=== PATIENT | female | born 1965 | race Caucasian/White ===

== ENCOUNTER 2016-04-22 01:56 | Emergency (ER) | payer OTHER ==
[~2016-04-22] VITALS: Ht 165.1 cm; Wt 73.5 kg
[2016-04-22 02:01] VITALS: BP 134/79
--- NOTE | 2016-04-22 02:07 | NUR ---
PT TAKEN TO BED 2
[2016-04-22] MEDS ORDERED: ASPIRIN 81 MG TAB.CHEW PO ONE (02:10)
[2016-04-22] MEDS ORDERED: NACL 0.9% 1,000 ML IV ONE (02:10)
--- NOTE | 2016-04-22 02:10 | NUR ---
50/F BIB SELF W/C/O CHEST PAIN. DENIES ANY N/V/D. NO MED HX ; SKIN IS PINK/WARM/DRY; AAOX4 WITH EVEN AND STEADY GAIT; LUNGS CLEAR BL; HR EVEN AND REGULAR; PT DENIES ANY FEVER, SOB, OR COUGH AT THIS TIME; PATIENT STATES PAIN OF 4/10 AT THIS TIME; VSS; PATIENT POSITIONED FOR COMFORT; HOB ELEVATED; BEDRAILS UP X2; BED DOWN. ER MD MADE AWARE OF PT STATUS.
--- NOTE | 2016-04-22 02:31 | NUR ---
Dr. Jama evaluating patient at bedside.
[2016-04-22] MEDS ORDERED: KETOROLAC 30 MG/ML VIAL IVP ONE (02:40)
--- NOTE | 2016-04-22 02:49 | NUR ---
AFTER 3 ATTEMPTS AT INSERTING AN IV, PT DID NOT WANT TO BE POKED ANOTHER TIME, ER MD DR DEVRIES MADE AWARE.
[2016-04-22] MEDS ORDERED: IBUPROFEN 800 MG TAB PO ONE (02:50)
--- NOTE | 2016-04-22 03:37 | NUR ---
X-Ray at bedside.
[2016-04-22 03:53] VITALS: BP 134/79
--- NOTE | 2016-04-22 03:53 | NUR ---
PATIENT ELOPED FROM FACILITY. DISCHARGE INSTRUCTIONS NOT GIVEN TO PATIENT. DR. DEVRIES NOTIFIED.
== END 2016-04-22 03:53 | disposition left against medical advice (07) ==
LOC: MED 01:56
DX: R07.89 Other chest pain (principal); R03.0 Elevated blood-pressure reading, without diagnosis of hypertension; R06.02 Shortness of breath; R05 Cough; F17.210 Nicotine dependence, cigarettes, uncomplicated
CPT/HCPCS: 36415; 71010; 80053; 84484; 85025; 85610; 85730; 93005; 99285; J7030; Q0092

== ENCOUNTER 2016-09-26 12:32 | Emergency (ER) | payer MEDICAID, OTHER ==
[~2016-09-26] VITALS: Ht 167.6 cm; Wt 68.0 kg
[2016-09-26 13:12] VITALS: BP 128/77
--- NOTE | 2016-09-26 13:22 | NUR ---
Ambulated to bed 5.
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
--- NOTE | 2016-09-26 13:50 | NUR ---
ER MD DR KEITH EVALUATING PT AT BEDSIDE.
--- NOTE | 2016-09-26 13:55 | NUR ---
PROVIDED URINE CUP FOR URINE COLLECTION.
--- NOTE | 2016-09-26 13:55 | NUR ---
Timoteo christopher in [facility] - 09/26/16 at 1454 by [facility] PROVIED URINE CUP FOR URINE COLLECTION.
--- NOTE | 2016-09-26 14:00 | NUR ---
Patient appears to be resting comfortably in bed. Vital Signs within normal limits. Respirations even and unlabored.WILL CONTINUE TO MONITOR.
[2016-09-26 14:28] LABS: HEMATOCRIT 46.1 % (36-48); HEMOGLOBIN 14.9 g/dL (12.0-16.0); MEAN CORPUSCULAR HEMOGLOBIN 28 pg (27-31); MEAN CORPUSCULAR HGB CONC 32 g/dL (33-37); MEAN CORPUSCULAR VOLUME 88 fL (80-94); PLATELET COUNT (AUTO) 185 K/uL (140-450); RED BLOOD CELL COUNT(AUTO) 5.27 MIL/uL (4.20-5.40); RED CELL DISTRIBUTION WIDTH 13.1 % (11.6-13.7); WHITE BLOOD COUNT (AUTO) 3.1 K/uL (4.8-10.8)
[2016-09-26 14:36] LABS: ALBUMIN 3.3 g/dL (3.4-5.0); CALCIUM 8.8 mg/dL (8.5-10.1); CARBON DIOXIDE 27.9 mmol/L (21-32); CREATININE 0.9 mg/dL (0.6-1.3); POTASSIUM 3.9 mmol/L (3.5-5.1); TOTAL BILIRUBIN 0.3 mg/dL (0.0-1.0); TOTAL PROTEIN, SERUM 7.4 g/dL (6.4-8.2)
[2016-09-26 14:47] LABS: BAND % (MANUAL) 0 % (0-8); EOSINOPHILS % (MANUAL) 4 % (0-4); LYMPHOCYTES % (MANUAL) 43 % (20-46); METAMYELOCYTES % 2 % (0-0); MONOCYTES % (MANUAL) 6 % (5-12); NEUTROPHILS % (MANUAL) 44 (43-65)
[2016-09-26 14:48] LABS: MYELOCYTES % 1 % (0-0); PLATELET ESTIMATE ADEQUATE
--- NOTE | 2016-09-26 15:00 | NUR ---
PT URENATED; URINE DIP DONE, SENT SPECIMEN TO LAB.
[2016-09-26 15:18] LABS: APPEARANCE,URINE SL CLOUDY (CLEAR); BILIRUBIN,URINE NEGATIVE (NEGATIVE); BLOOD, URINE NEGATIVE (NEGATIVE); COLOR,URINE YELLOW (YELLOW); LEUKOCYTE ESTERASE ,URINE TRACE (NEGATIVE); NITRITE, URINE POSITIVE (NEGATIVE); PROTEIN,URINE TRACE (NEGATIVE); UGLUCOSE NEGATIVE (NEGATIVE); UROBILINOGEN,URINE 0.2 EU/dL (0.2 - 1)
[2016-09-26 15:27] LABS: BACTERIA,URINE 4+ /HPF (None Seen); MUCUS,URINE 1+ /LPF (None Seen); RBC,URINE 0-3 /HPF (0-5)
--- NOTE | 2016-09-26 15:47 | NUR ---
Patient appears to be SLEEPING comfortably in bed. Vital Signs within normal limits. Respirations even and unlabored.WILL CONTINUE TO MONITOR.
--- NOTE | 2016-09-26 15:48 | NUR ---
ER MD DR KEITH REEVALUATING PT AT BEDSIDE.
[2016-09-26 15:57] VITALS: BP 126/78
--- NOTE | 2016-09-26 15:58 | NUR ---
Patient discharged with v/s stable. Written and verbal after care instructions given and explained. Patient alert, oriented and verbalized understanding of instructions. Ambulatory with steady gait. All questions addressed prior to discharge. ID band removed. Patient advised to follow up with PMD. Rx of BENADRYL ALLERGY & NITROFURANTOIN given. Patient educated on indication of medication including possible reaction and side effects. Opportunity to ask questions provided and answered.
== END 2016-09-26 15:58 | disposition home or self-care (01) ==
LOC: MED 12:32
DX: T78.40XA Allergy, unspecified, initial encounter (principal); R21 Rash and other nonspecific skin eruption; N39.0 Urinary tract infection, site not specified; Z90.89 Acquired absence of other organs; X58.XXXA Exposure to other specified factors, initial encounter
CPT/HCPCS: 36415; 80053; 81001; 81025; 85025; 87086; 99284

== ENCOUNTER 2017-02-06 10:13 | Emergency (ER) | payer MEDICAID ==
[~2017-02-06] VITALS: Ht 162.6 cm; Wt 69.9 kg
[2017-02-06 10:43] VITALS: BP 128/78
--- NOTE | 2017-02-06 10:50 | NUR ---
Patient to bed 01.
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
--- NOTE | 2017-02-06 11:54 | NUR ---
Dr. Herrera evaluating patient at bedside.
--- NOTE | 2017-02-06 12:12 | NUR ---
pt filling out orange survey.
--- NOTE | 2017-02-06 12:20 | NUR ---
Patient discharged with v/s stable. Written and verbal after care instructions given and explained. Patient alert, oriented and verbalized understanding of instructions. Ambulatory with steady gait. All questions addressed prior to discharge. ID band removed. Patient advised to follow up with PMD. Rx of motrin 600mg/tab given. Patient educated on indication of medication including possible reaction and side effects. Opportunity to ask questions provided and answered.
[2017-02-06 12:22] VITALS: BP 128/74
== END 2017-02-06 12:20 | disposition home or self-care (01) ==
LOC: MED 10:13
DX: R53.83 Other fatigue (principal); R42 Dizziness and giddiness; Z90.49 Acquired absence of other specified parts of digestive tract; F17.210 Nicotine dependence, cigarettes, uncomplicated
CPT/HCPCS: 81002; 81025; 82948; 99282

== ENCOUNTER 2017-03-20 20:02 | Emergency (ER) | payer MEDICAID ==
[~2017-03-20] VITALS: Ht 167.6 cm; Wt 68.0 kg
[2017-03-20 20:07] VITALS: BP 123/69
--- NOTE | 2017-03-20 20:11 | NUR ---
TO LOBBY, JUAN SWANSON,A/W BED, CECI NOTED
--- NOTE | 2017-03-20 20:49 | NUR ---
PATIENT AMBULATED TO BED 3
[2017-03-20 22:01] VITALS: BP 120/72
--- NOTE | 2017-03-20 22:01 | NUR ---
Patient discharged with v/s stable. Written and verbal after care instructions given and explained. Patient alert, oriented and verbalized understanding of instructions. Ambulatory with steady gait. All questions addressed prior to discharge. ID band removed. Patient advised to follow up with PMD. Rx of ROBITUSSIN AND MOTRIN given. Patient educated on indication of medication including possible reaction and side effects. Opportunity to ask questions provided and answered.
== END 2017-03-20 22:01 | disposition home or self-care (01) ==
LOC: MED 20:02
DX: J11.1 Influenza due to unidentified influenza virus with other respiratory manifestations (principal); R07.81 Pleurodynia; R05 Cough; F17.210 Nicotine dependence, cigarettes, uncomplicated
CPT/HCPCS: 71045; 93005; 99284

== ENCOUNTER 2017-10-20 12:41 | Emergency (ER) | payer MEDICAID ==
[~2017-10-20] VITALS: Ht 167.6 cm; Wt 71.3 kg
[2017-10-20 12:45] VITALS: BP 107/70
--- NOTE | 2017-10-20 12:47 | NUR ---
PT AMBULATED TO ED BED 7, REPORT TO TARYN CARROLL
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
--- NOTE | 2017-10-20 13:22 | NUR ---
DR DEVRIES EVALUATING AT BEDSIDE
--- NOTE | 2017-10-20 13:23 | NUR ---
XRAY AT BEDSIDE
--- NOTE | 2017-10-20 13:33 | NUR ---
[place] [employer] AT BEDSIDE
[2017-10-20] MEDS ORDERED: KETOROLAC 60 MG/2 ML VIAL IM ONE (13:35)
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
--- NOTE | 2017-10-20 13:58 | NUR ---
S/P SPLINT PLACEMENT TO R WRIST CAP REFILL BRISK, SKIN WNL, GOOD SENSATION
[2017-10-20 14:02] VITALS: BP 110/72
--- NOTE | 2017-10-20 14:02 | NUR ---
Patient discharged with v/s stable. Written and verbal after care instructions given and explained. Patient alert, oriented and verbalized understanding of instructions. Ambulatory with steady gait. All questions addressed prior to discharge. ID band removed. Patient advised to follow up with PMD. Rx of MOTRIN, TRAMADOL given. Patient educated on indication of medication including possible reaction and side effects. Opportunity to ask questions provided and answered.
== END 2017-10-20 14:02 | disposition home or self-care (01) ==
LOC: MED 12:41
DX: S40.022A Contusion of left upper arm, initial encounter (principal); S05.12XA Contusion of eyeball and orbital tissues, left eye, initial encounter; M25.531 Pain in right wrist; X58.XXXA Exposure to other specified factors, initial encounter; Y93.89 Activity, other specified; Y92.89 Other specified places as the place of occurrence of the external cause; Y99.8 Other external cause status
CPT/HCPCS: 29125; 73110; 96372; 99284; J1885; Q0092

== ENCOUNTER 2018-02-19 08:02 | Emergency (ER) | payer MEDICAID ==
[~2018-02-19] VITALS: Ht 167.6 cm; Wt 73.0 kg
[2018-02-19 08:08] VITALS: BP 102/66
[2018-02-19 09:24] VITALS: BP 101/70
== END 2018-02-19 09:20 | disposition home or self-care (01) ==
LOC: MED 08:02
DX: M17.12 Unilateral primary osteoarthritis, left knee (principal); F17.210 Nicotine dependence, cigarettes, uncomplicated; Z71.6 Tobacco abuse counseling; Z90.89 Acquired absence of other organs
CPT/HCPCS: 73562; 99283; Q0092

== ENCOUNTER 2018-04-04 09:16 | Emergency (ER) | payer MEDICAID ==
[~2018-04-04] VITALS: Ht 165.1 cm; Wt 70.0 kg
[2018-04-04 09:20] VITALS: BP 136/64
--- NOTE | 2018-04-04 09:25 | NUR ---
PATIENT AMBULATED TO BED 3.
--- NOTE | 2018-04-04 09:36 | NUR ---
52 YO F BIB SELF W/ C/O 1 BUG BITE TO THE RIGHT UPPER THIGH SINCE LAST NIGHT. PT REPORTS THAT IT IS ITCHY. REPORTS NAUSEA, DENIES V/D/FEVERS. DENIES PAIN. UNSURE WHAT BIT HER. -ECCHYMOSIS. -OPEN. -PUS.
[2018-04-04 10:25] VITALS: BP 136/64
--- NOTE | 2018-04-04 10:25 | NUR ---
Patient discharged with v/s stable. Written and verbal after care instructions given and explained. Patient verbalized understanding. Ambulatory with steady gait. All questions addressed prior to discharge. Advised to follow up with PMD.
== END 2018-04-04 10:25 | disposition home or self-care (01) ==
LOC: MED 09:16
DX: L23.89 Allergic contact dermatitis due to other agents (principal); W57.XXXA Bitten or stung by nonvenomous insect and other nonvenomous arthropods, initial encounter; Y93.89 Activity, other specified; Y92.89 Other specified places as the place of occurrence of the external cause; Y99.8 Other external cause status
CPT/HCPCS: 99282; Q0163; 99281

== ENCOUNTER 2018-05-10 05:12 | Emergency (ER) | payer MEDICAID ==
[~2018-05-10] VITALS: Ht 167.6 cm; Wt 68.5 kg
[2018-05-10 05:15] VITALS: BP 114/89
--- NOTE | 2018-05-10 05:15 | NUR ---
PT AMBULATED TO BED 12 FOR BEDSIDE TRIAGE, URINE CUP GIVEN TO PT, REPORT TO MARLEE CARROLL
--- NOTE | 2018-05-10 05:30 | NUR ---
PATIENT PRESENTS TO ED WITH PAINFUL UNINATION. PT STATES TO HAVING DYSURIA AND FREQUENT URINATION X2 DAYS. DENIES N/V/D; SKIN IS PINK/WARM/DRY; AAOX4 WITH EVEN AND STEADY GAIT; LUNGS CLEAR BL; HR EVEN AND REGULAR; PT DENIES ANY FEVER, CP, SOB, OR COUGH AT THIS TIME; PATIENT STATES PAIN OF 6/10 AT THIS TIME; VSS; PATIENT POSITIONED FOR COMFORT; HOB ELEVATED; BEDRAILS UP X2; BED DOWN. ER MD MADE AWARE OF PT STATUS. PMH: DENIES RX: DENIES
[2018-05-10 06:00] LABS: APPEARANCE,URINE SL CLOUDY (CLEAR); BILIRUBIN,URINE 1+ (NEGATIVE); BLOOD, URINE NEGATIVE (NEGATIVE); COLOR,URINE YELLOW (YELLOW); LEUKOCYTE ESTERASE ,URINE 1+ (NEGATIVE); NITRITE, URINE NEGATIVE (NEGATIVE); UGLUCOSE NEGATIVE (NEGATIVE)
[2018-05-10 06:12] LABS: RBC,URINE 0-5 /HPF (0-5); WBC,URINE 16-25 (MOD) /HPF (0-5)
[2018-05-10] MEDS ORDERED: PHENAZOPYRIDINE 100 MG TAB PO ONE (06:25)
[2018-05-10] MEDS ORDERED: SULFAMETH/TRIMETH DS 800/160MG 1 TAB PO ONE (06:25)
[2018-05-10 06:52] VITALS: BP 125/72
--- NOTE | 2018-05-10 06:52 | NUR ---
Patient discharged with v/s stable. Written and verbal after care instructions given and explained. Patient alert, oriented and verbalized understanding of instructions. Ambulatory with steady gait. All questions addressed prior to discharge. ID band removed. Patient advised to follow up with PMD. Rx of PYRIDIUM AND BACTRIM given. Patient educated on indication of medication including possible reaction and side effects. Opportunity to ask questions provided and answered.
== END 2018-05-10 06:52 | disposition home or self-care (01) ==
LOC: MED 05:12
DX: N39.0 Urinary tract infection, site not specified (principal)
CPT/HCPCS: 81001; 81025; 87086; 87186; 99283

== ENCOUNTER 2019-01-21 17:00 | Emergency (ER) | payer MEDICAID ==
[~2019-01-21] VITALS: Ht 167.6 cm; Wt 72.6 kg
[2019-01-21 17:15] VITALS: BP 127/89
--- NOTE | 2019-01-21 17:27 | NUR ---
PT TO X-RAY VIA WHEEL CHAIR
--- NOTE | 2019-01-21 17:34 | NUR ---
PT RETURNED TO LOBBY AT THIS TIME
[2019-01-21 18:03] LABS: BASOPHILS # (AUTO) 0.1 K/uL (0.00-0.22); BASOPHILS % (AUTO) 0.7 % (0.0-2.0); EOSINOPHILS # (AUTO) 0.1 K/uL (0-0.4); EOSINOPHILS % (AUTO) 1.4 % (0.0-4.0); HEMOGLOBIN 14.5 g/dL (12.0-16.0); LYMPHOCYTES # (AUTO) 2.1 K/uL (2.5-16.5); LYMPHOCYTES % (AUTO) 26.7 % (20.5-51.1); MEAN CORPUSCULAR HEMOGLOBIN 31 pg (27-31); MEAN CORPUSCULAR HGB CONC 34 g/dL (33-37); MEAN CORPUSCULAR VOLUME 90.6 fL (80-94); MONOCYTES # (AUTO) 0.6 K/uL (0.8-1.0); MONOCYTES % (AUTO) 7.4 % (1.7-9.3); NEUTROPHILS # (AUTO) 4.9 K/uL (1.8-7.7); NEUTROPHILS % (AUTO) 63.8 % (42.2-75.2); PLATELET COUNT (AUTO) 309 K/uL (140-450); RED BLOOD CELL COUNT(AUTO) 4.75 MIL/uL (4.20-5.40); RED CELL DISTRIBUTION WIDTH 12.8 % (11.6-13.7); WHITE BLOOD COUNT (AUTO) 7.7 K/uL (4.8-10.8)
--- NOTE | 2019-01-21 18:35 | NUR ---
CALLED PATIENT FROM ER LOBBY AND NO ANSWER.
--- NOTE | 2019-01-21 18:35 | NUR ---
PATIENT LEFT WITHOUT BEING SEEN BY DR. WAGNER. NO FURTHER CARE PROVIDED FOR PATIENT.
--- NOTE | 2019-01-21 18:43 | NUR ---
PT BACK IN ER LOBBY. TAKEN TO BED 4.
[2019-01-21 18:54] LABS: ANION GAP 11.6 (8-16); CARBON DIOXIDE 28.7 mmol/L (21-32); CREATININE 1.3 mg/dL (0.6-1.3); POTASSIUM 3.3 mmol/L (3.5-5.1)
[2019-01-21 19:06] LABS: ALBUMIN 3.9 g/dL (3.4-5.0); TOTAL BILIRUBIN 0.4 mg/dL (0.0-1.0)
--- NOTE | 2019-01-21 19:10 | NUR ---
PATIENT PRESENTS TO ED C/O ALLERGIES MANIFESTED BY COUGH X 3 DAYS. PT SAYS SHE IS ALLERGIC "TO THE ENVIRONEMT." SHE TOOK COUGH SYRUP, WHICH PROVIDED NO RELIEF. -COLDS,-FEVER,-. LUNGS ARE CLEAR BILATERALLY. NO RESPIRATORY DISTRESS NOTED. PATIENT STATES PAIN OF 0/10 AT THIS TIME; VSS; PATIENT POSITIONED FOR COMFORT; HOB ELEVATED; BEDRAILS UP X2; BED DOWN. ER MD MADE AWARE OF PT STATUS. NO PMH NO MEDS NO ALLERGIES TO MEDS
--- NOTE | 2019-01-21 19:12 | NUR ---
REPORT GIVEN TO GLEN NETTLES. ALL CARE TRANSFERRED AT THIS TIME.
--- NOTE | 2019-01-21 21:53 | NUR ---
PT SITTING IN BED NO SIGNS OF DISTRESS. NO PAIN REPORTED. VSS. ABLE TO MAKE NEEDS KNOWN WILL CONTINUE TO MONITOR
[2019-01-21 22:14] VITALS: BP 120/92
--- NOTE | 2019-01-21 22:14 | NUR ---
Patient discharged with v/s stable. Written and verbal after care instructions given and explained. Patient alert, oriented and verbalized understanding of instructions. Ambulatory with steady gait. All questions addressed prior to discharge. ID band removed. Patient advised to follow up with PMD. Rx of ALBUTEROL, NORCO given. Patient educated on indication of medication including possible reaction and side effects. Opportunity to ask questions provided and answered.
== END 2019-01-21 22:14 | disposition home or self-care (01) ==
LOC: MED 17:00
DX: R10.13 Epigastric pain (principal); R05 Cough; R09.89 Other specified symptoms and signs involving the circulatory and respiratory systems; Z90.49 Acquired absence of other specified parts of digestive tract; Z98.890 Other specified postprocedural states
CPT/HCPCS: 36415; 71045; 76705; 80053; 83690; 84484; 85025; 93005; 99284; Q0092

== ENCOUNTER 2019-12-02 15:35 | Emergency (ER) | payer MEDICAID ==
[~2019-12-02] VITALS: Ht 162.6 cm; Wt 73.0 kg
[2019-12-02 15:48] VITALS: BP 119/79
[2019-12-02] MEDS ORDERED: AZITHROMYCIN 250 MG TAB PO ONE (16:00)
[2019-12-02] MEDS ORDERED: cefTRIAXone 250 MG in LIDOCAINE MPF 1% 0.9 ML IM ONE (16:00)
[2019-12-02] MEDS ORDERED: LIDOCAINE MPF 1% 5 ML ONE (16:07)
[2019-12-02] MEDS ORDERED: cefTRIAXone 250 MG VIAL ONE (16:07)
[2019-12-02 16:24] LABS: APPEARANCE,URINE HAZY (CLEAR); BILIRUBIN,URINE NEGATIVE (NEGATIVE); BLOOD, URINE NEGATIVE (NEGATIVE); COLOR,URINE YELLOW (YELLOW); LEUKOCYTE ESTERASE ,URINE NEGATIVE (NEGATIVE); NITRITE, URINE POSITIVE (NEGATIVE); UGLUCOSE NEGATIVE (NEGATIVE)
[2019-12-02 16:38] VITALS: BP 119/79
== END 2019-12-02 16:39 | disposition home or self-care (01) ==
LOC: MED 15:35
DX: A64 Unspecified sexually transmitted disease (principal); Z90.49 Acquired absence of other specified parts of digestive tract
CPT/HCPCS: 36415; 81001; 87086; 96372; 99283; J0696; J2001

== ENCOUNTER 2020-09-25 19:58 | Emergency (ER) | payer MEDICAID ==
[~2020-09-25] VITALS: Ht 160 cm; Wt 80.7 kg
[2020-09-25 20:18] VITALS: BP 121/97
--- NOTE | 2020-09-25 20:39 | NUR ---
Ermd assessing patient in triage for medical evaluation.
[2020-09-25 22:19] VITALS: BP 128/82
== END 2020-09-25 22:19 | disposition home or self-care (01) ==
LOC: MED 19:58
DX: S70.11XA Contusion of right thigh, initial encounter (principal); F17.210 Nicotine dependence, cigarettes, uncomplicated; F12.90 Cannabis use, unspecified, uncomplicated; Z71.6 Tobacco abuse counseling; Z98.890 Other specified postprocedural states; V27.9XXA Unspecified motorcycle rider injured in collision with fixed or stationary object in traffic accident, initial encounter; Y93.89 Activity, other specified; Y92.89 Other specified places as the place of occurrence of the external cause; Y99.8 Other external cause status
CPT/HCPCS: 73502; 99283

== ENCOUNTER 2022-02-10 20:31 | Emergency (ER) | payer MEDICAID ==
[~2022-02-10] VITALS: Ht 167.6 cm; Wt 75.7 kg
[2022-02-10 20:40] VITALS: BP 129/83
--- NOTE | 2022-02-10 20:45 | NUR ---
TO LOBBY A/W BED AMBULATORY
--- NOTE | 2022-02-10 21:52 | NUR ---
PT TO 11
--- NOTE | 2022-02-10 21:54 | NUR ---
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
[2022-02-10] MEDS ORDERED: KETOROLAC 30 MG/ML VIAL IM ONE (22:20)
[2022-02-10] MEDS ORDERED: CYCL-711 PO (22:21)
[2022-02-10] MEDS ORDERED: NAPR-54 PO (22:21)
--- NOTE | 2022-02-10 22:41 | NUR ---
Patient discharged with v/s stable. Written and verbal after care instructions given and explained. Patient verbalized understanding. Ambulatory with steady gait. All questions addressed prior to discharge. Advised to follow up with PMD. pt went home her paul
[2022-02-10 22:43] VITALS: BP 129/83
== END 2022-02-10 22:41 | disposition home or self-care (01) ==
LOC: MED 20:31
DX: S46.812A Strain of other muscles, fascia and tendons at shoulder and upper arm level, left arm, initial encounter (principal); S46.911A Strain of unspecified muscle, fascia and tendon at shoulder and upper arm level, right arm, initial encounter; X58.XXXA Exposure to other specified factors, initial encounter; Y93.89 Activity, other specified; Y92.89 Other specified places as the place of occurrence of the external cause; Y99.8 Other external cause status
CPT/HCPCS: 73030; 73080; 96372; 99284; J1885